=== PATIENT | female | born 1960 | race Caucasian/White ===

== ENCOUNTER → 2020-05-29 12:53 | Outpatient (CLI) | payer OTHER, SELFPAY ==
--- NOTE | ~2020-05-29 | XR_ITS ---
[id number] 05/29/2020 13:09 Indication: Cervicalgia Procedure: 3 view cervical spine Comparison: No prior studies for comparison. Findings: Normal cervical alignment. No fracture, subluxation or dislocation. No prevertebral soft ti ssue swelling. There are mild uncinate degenerative changes at multiple levels. Lung apices are beatrice l. Odontoid process within normal limits. Impression: 1: Mild cervical spondylosis. Reviewed, dictated and finalized at [facility]. Impression: 1: Mild cervical spondylosis.
== END ==
PROVIDERS: PCP Physician Assistant; Visit Provider Physician Assistant
DX: M47.892 Other spondylosis, cervical region (principal)
CPT/HCPCS: 72040

== ENCOUNTER → 2022-12-30 08:16 | Outpatient (CLI) | payer OTHER, SELFPAY ==
--- NOTE | ~2022-12-30 | CT_ITS ---
EXAMINATION: CT abdomen pelvis wo/w con DATE: 12/30/2022 09:12 INDICATION: Gross hematuria TECHNIQUE: Computed tomography (CT) of the abdomen and pelvis was performed without and subsequently with 130 CC Omnipaque 350 intravenous contrast. Automated exposure control and iterative reconstructi on technique were employed. Exam dose: 1042.89 mGy-cm total exam DLP. COMPARISON: December 30, 2022 KUB FINDINGS: Minimal bilateral dependent lower lobe atelectasis. Heart size is within normal range. No p ericardial or pleural effusion. Small sliding hiatal hernia. The liver, gallbladder, bile ducts, pancreas, pancreatic duct and spleen as well is the adrenal gland s are unremarkable. A couple of small lower pole right renal cysts are noted, measuring up to approximately 6 mm. No rory l mass lesion or scarring is noted on either side otherwise. There is moderate prominence of the renal pelves, right greater than left and ureters. No filling def ect of the renal collecting systems, renal pelves or ureters or urinary bladder is evident. Ureteral jet is demonstrated in the urinary bladder on the left. No urinary tract calculus is detected. There is moderate prominence of the right renal pelvis and proximal right ureter. Calcified uterine fibroids, the largest measuring up to approximately 4.4 cm. The adnexal areas and urinary bladder are unremarkable. Normal appendix. Mild diverticulosis of the left colon; no CT evidence of diverticulitis. No bowel ob struction, bowel wall thickening, pneumatosis or intraperitoneal free air. There is atherosclerotic calcification but normal caliber of the abdominal aorta. No intraperitoneal or retroperitoneal or pelvic mass lesion or adenopathy or ascites. Small fat-containing umbilical hernia. Included skeletal structures are unremarkable; no suspicious osteolytic or osteoblastic lesions are noted. IMPRESSION: Small sliding hiatal hernia Small right renal cysts No urinary tract calculus or hydroureteronephrosis or urinary tract lesion is evident Calcified uterine fibroids Normal appendix Diverticulosis of the left colon; no evidence of diverticulitis Reviewed, dictated and finalized at [facility]. Reviewed, dictated and finalized at [facility]. IMPRESSION: Small sliding hiatal hernia Small right renal cysts No urinary tract calculus or hydroureteronephrosis or urinary tract lesion is e vident Calcified uterine fibroids Normal appendix Diverticulosis of the left colon; no evidence of diverticulitis
--- NOTE | ~2022-12-30 | XR_ITS ---
Supine and upright views of the abdomen Clinical history: Hematuria Findings: Bowel gas pattern is nonspecific. No evidence for obstruction or free air. Calcified uterin e fibroids are present in the pelvis. No renal stone evident. Osseous structures are intact. Impression: Calcified uterine fibroids. Reviewed, dictated and finalized at [facility]. Impression: Calcified uterine fibroids.
[2022-12-30 08:47] LABS: Estimated Glomerular Filt Rate > 60
== END ==
PROVIDERS: PCP Internal Medicine; Visit Provider Urology
DX: R31.0 Gross hematuria (principal); D25.9 Leiomyoma of uterus, unspecified; K44.9 Diaphragmatic hernia without obstruction or gangrene; N28.1 Cyst of kidney, acquired; K57.30 Diverticulosis of large intestine without perforation or abscess without bleeding
CPT/HCPCS: 74018; 74178; Q9967